=== PATIENT | female | born 1940 | race Caucasian/White ===

== ENCOUNTER → 2017-02-07 | Outpatient (CLI) | payer OTHER ==
[~2017-02-07] MED LIST: CALCIUM 500 +1 EAC5 PO; CELEXA20 MG PO; FISH OIL 1,001000 M2 PO; MELATONIN3 MG PO; VITAMIN B-1100 M1 PO; VITAMIN B-12500 MCG PO; VITAMIN D1000 UNI1 PO
== END ==
LOC: RAD 08:15
DX: Z12.31 Encounter for screening mammogram for malignant neoplasm of breast (principal)

== ENCOUNTER → 2017-03-30 | Outpatient (CLI) | payer OTHER ==
--- NOTE | ~2017-03-30 | 2DMMODE ---
[facility] [address] [place] [address] 2 D/M-MODE ECHOCARDIOGRAM Name: WESTON SANABRIA Room #: REG [facility] [id number] Admission: 03/30/17 Attend Phys: Siddhartha Andres Discharge: Date of : 40 Date of Service: 03/30/17 1835 Report #: [id number] THIS REPORT FOR: //name// APPROVED REPORT Study performed: 03/30/2017 11:46:07 EXAM: Comprehensive 2D, Doppler, and color-flow Echocardiogram Patient Location: Out-Patient Room #: Echo lab Status: routine BSA: 1.57 HR: 74 bpm BP: 138/67 mmHg Other Information Study Quality: Adequate Indications High calcium score 2D Dimensions RVDd: 29.28 mm LVEF(%): 73.16 (>50%) IVSd: 9.63 (7-11mm) LVOT Diam: 16.69 (18-24mm) LVDd: 39.44 mm PWd: 8.14 (7-11mm) Ascending Ao: 22.17 (22-36mm) LVDs: 23.02 (25-40mm) Aortic Root: 21.93 mm IVC: 13.00 mm Castillo's LVEF: 73.16 % Volumes Left Atrial Volume (Systole) Single Plane 4CH: 19.53 mL Single Plane 2CH: 21.44 mL LA ESV Index: 14.00 mL/m2 Aortic Valve AoV Peak Seth.: 1.21 m/s AO Peak Gr.: 5.82 mmHg LVOT Max P.47 mmHg LVOT Max V: 0.93 m/s EDY Vmax: 1.69 cm2 Mitral Valve E/A Ratio: 1.3 MV Decel. Time: 231.53 ms MV E Max Seth.: 0.77 m/s [facility] [email or web address] [place] [address] 2 D/M-MODE ECHOCARDIOGRAM Name: WESTON SANABRIA Room #: [facility] Dirk#: [id number] Admission: 03/30/17 Attend Phys: Siddhartha Andres Discharge: Date of : 40 Date of Service: 03/30/17 1835 Report #: [id number] MV A Seth.: 0.59 m/s MV PHT: 67.14 ms IVRT: 96.89 ms Pulmonary Valve PV Peak Seht.: 1.05 m/s PV Peak Gr.: 4.37 mmHg Pulmonary Vein P Vein S: 0.70 m/s P Vein A: 0.35 m/s P Vein D: 0.56 m/s P Vein A Dur.: 115.3 msec P Vein S/D Ratio: 1.25 Tricuspid Valve TR Peak Seth.: 3.02 m/s TR Peak Gr.: 36.37 mmHg PA Pressure: 41.00 mmHg Left Ventricle The left ventricle is normal size. There is normal left ventricular wall thickness. The left ventricular systolic function is normal. The left ventricular ejection fraction is within the normal range. LVEF is 60-65%. The left ventricular diastolic function is normal. Right Ventricle The right ventricle is normal size. The right ventricular systolic function is normal. Atria The left atrium size is normal. The right atrium size is normal. Aortic Valve The aortic valve is normal in structure. Aortic valve is calcified. No aortic regurgitation is present. There is no aortic valvular stenosis. Mitral Valve The mitral valve is normal in structure. Trace mitral regurgitation. No evidence of mitral valve stenosis. Tricuspid Valve The tricuspid valve is normal in structure. There is moderate tricuspid regurgitation. There is mild pulmonary hypertension. Pulmonic Valve [address] [address] 2 D/M-MODE ECHOCARDIOGRAM Name: TRISTAJORYWESTON Castillo Room #: REG Dirk#: [id number] Admission: 03/30/17 Attend Phys: Siddhartha Andres Discharge: Date of : 40 Date of Service: 03/30/17 1835 Report #: [id number] The pulmonary valve is normal in structure. There is no pulmonic valvular regurgitation. Great Vessels The aortic root is normal in size. IVC is normal in size and collapses >50% with inspiration. Pericardium There is no pericardial effusion. <Conclusion> The left ventricle is normal size. LVEF is 60-65%. The left ventricular diastolic function is normal. The right ventricle is normal size. The left atrium size is normal. The aortic valve is normal in structure. Aortic valve is calcified. There is no aortic valvular stenosis. Trace mitral regurgitation. There is moderate tricuspid regurgitation. There is mild pulmonary hypertension. There is no pericardial effusion. <ELECTRONICALLY SIGNED> By: Estuardo Hdez MD, FACC 03/30/171834 34 34 Estuardo Hdez MD, FACC /INF
== END ==
LOC: CV 08:02
DX: I27.2 Other secondary pulmonary hypertension (principal); I25.10 Atherosclerotic heart disease of native coronary artery without angina pectoris; I07.1 Rheumatic tricuspid insufficiency; E83.52 Hypercalcemia

== ENCOUNTER → 2017-05-19 | Outpatient (CLI) | payer OTHER ==
[~2017-05-19] MED LIST changes: +ASPIRIN81 M2 PO; +ATORVASTATIN CA40 MG PO; +COLACE100 MG PO; +HYDROCODON-ACE1 EAC7 PO; +SINEMET 25-1001 EAC1 PO; +XARELTO10 MG PO
== END ==
LOC: SEN 13:52
DX: E78.5 Hyperlipidemia, unspecified (principal); F32.9 Major depressive disorder, single episode, unspecified; R42 Dizziness and giddiness; F17.200 Nicotine dependence, unspecified, uncomplicated; Z90.710 Acquired absence of both cervix and uterus; Z98.890 Other specified postprocedural states

== ENCOUNTER → 2018-02-08 | Outpatient (CLI) | payer OTHER ==
[~2018-02-08] MED LIST changes: -ASPIRIN81 M2 PO; -ATORVASTATIN CA40 MG PO; -COLACE100 MG PO; -HYDROCODON-ACE1 EAC7 PO; -SINEMET 25-1001 EAC1 PO; -XARELTO10 MG PO
== END ==
LOC: RAD 01:04
DX: Z12.31 Encounter for screening mammogram for malignant neoplasm of breast (principal)

== ENCOUNTER → 2018-04-20 | Outpatient (CLI) | payer OTHER ==
[~2018-04-20] MED LIST changes: +ASPIRIN81 M2 PO; +ATORVASTATIN CA40 MG PO; +COLACE100 MG PO; +HYDROCODON-ACE1 EAC7 PO; +SINEMET 25-1001 EAC1 PO; +XARELTO10 MG PO
[2018-04-20 15:33] VITALS: BP 121/61
== END ==
LOC: SEN 09:16
DX: S72.042D Displaced fracture of base of neck of left femur, subsequent encounter for closed fracture with routine healing (principal); M81.0 Age-related osteoporosis without current pathological fracture; X58.XXXD Exposure to other specified factors, subsequent encounter

== ENCOUNTER → 2018-06-29 | Outpatient (CLI) | payer OTHER | LOC: SEN 06-22 15:37 | DX: Z09 Encounter for follow-up examination after completed treatment for conditions other than malignant neoplasm (principal); E78.5 Hyperlipidemia, unspecified; G47.00 Insomnia, unspecified; G20 Parkinson's disease; R63.4 Abnormal weight loss; F32.9 Major depressive disorder, single episode, unspecified ==

== ENCOUNTER → 2018-08-16 | Outpatient (CLI) | payer OTHER | LOC: NUC 09:06 | DX: S72.042A Displaced fracture of base of neck of left femur, initial encounter for closed fracture (principal); X58.XXXA Exposure to other specified factors, initial encounter; Y93.89 Activity, other specified; Y92.89 Other specified places as the place of occurrence of the external cause; Y99.8 Other external cause status; Z96.642 Presence of left artificial hip joint ==

== ENCOUNTER → 2018-09-28 | Outpatient (CLI) | payer OTHER ==
[2018-09-28 13:48] LABS: ABSOLUTE NEUTROPHILS 3.5 thou/uL (1.4-8.2); BASOPHILS 0.6 % (0.0-2.0); EOSINOPHILS 2.6 % (0.0-3.0); HEMOGLOBIN 10.5 gm/dL (12.0-15.0); LYMPHOCYTES 25.2 % (24.0-44.0); MCH 29.4 pg (26.0-34.0); MCV 86.6 fL (80.0-100.0); MONOCYTES 9.1 % (1.0-8.0); PLATELET COUNT 282 thou/uL (150-400); POLYS 62.5 % (36.0-66.0); RBC 3.58 mil/uL (4.20-5.00); RDW 17.7 % (10.5-14.5); WBC 5.6 thou/uL (4.0-11.0)
== END ==
LOC: SEN 07:47
PROVIDERS: Nurse Practitioner Family
DX: E78.5 Hyperlipidemia, unspecified (principal); D64.9 Anemia, unspecified; G20 Parkinson's disease

== ENCOUNTER → 2018-12-05 | Outpatient (CLI) | payer OTHER | LOC: RAD 15:01 | DX: M47.816 Spondylosis without myelopathy or radiculopathy, lumbar region (principal); M43.8X4 Other specified deforming dorsopathies, thoracic region ==

== ENCOUNTER → 2018-12-14 | Outpatient (CLI) | payer OTHER | LOC: MRI 10:31 | DX: M43.8X5 Other specified deforming dorsopathies, thoracolumbar region (principal); M47.812 Spondylosis without myelopathy or radiculopathy, cervical region; M51.26 Other intervertebral disc displacement, lumbar region; M12.88 Other specific arthropathies, not elsewhere classified, other specified site; M85.68 Other cyst of bone, other site ==

== ENCOUNTER → 2018-12-26 | Outpatient (CLI) | payer OTHER ==
[~2018-12-26] VITALS: Ht 157.5 cm; Wt 47.6 kg
[2018-12-26 08:33] VITALS: BP 152/61
[2018-12-26 10:55] VITALS: BP 146/68
[2018-12-26 12:00] VITALS: BP 124/82
== END | disposition home or self-care (01) ==
LOC: SPEC 07:19
DX: M80.08XA Age-related osteoporosis with current pathological fracture, vertebra(e), initial encounter for fracture (principal); M54.9 Dorsalgia, unspecified; N18.9 Chronic kidney disease, unspecified; G20 Parkinson's disease; K21.9 Gastro-esophageal reflux disease without esophagitis; F32.9 Major depressive disorder, single episode, unspecified; Z90.710 Acquired absence of both cervix and uterus; Z98.890 Other specified postprocedural states; Z85.3 Personal history of malignant neoplasm of breast; Z79.899 Other long term (current) drug therapy; Z88.2 Allergy status to sulfonamides; Z79.82 Long term (current) use of aspirin

== ENCOUNTER 2019-03-21 15:57 | Inpatient (IN) | payer OTHER ==
[~2019-03-21] VITALS: Ht 160 cm; Wt 44.8 kg
--- NOTE | ~2019-03-21 | O ---
[facility] [place] [address] OPERATIVE REPORT Name: DANIELEWESTON Cecilia Room #: 434-P [facility] IN .R.#: [id number] Admission: 03/21/19 Attend Phys: Michael Fan MD Discharge: Date of : 40 Report #: [id number] THIS REPORT FOR: //name// CC: Michael Stephens DATE OF SERVICE: 03/22/2019 PREOPERATIVE DIAGNOSES: 1. Organoaxial gastric volvulus. 2. Type 4 paraesophageal hernia, symptomatic. POSTOPERATIVE DIAGNOSES: 1. Organoaxial gastric volvulus. 2. Type 4 paraesophageal hernia, symptomatic. OPERATIVE PROCEDURE DONE: Laparoscopic repair of paraesophageal hernia with reduction of gastric volvulus and laparoscopic Toupet fundoplication. OPERATING SURGEON: Ned Palmer MD INDICATIONS FOR PROCEDURE: The patient is a 78-year-old female who presented with features of nausea and vomiting and upper abdominal discomfort. CT scan that was done showed features of a distended stomach with features of organoaxial gastric volvulus. The patient was advised laparoscopic repair of the same with fundoplication. The patient showed understanding and agreed to proceed. DESCRIPTION OF PROCEDURE: After explaining to the patient in detail and informed consent was obtained, the patient was identified in the preoperative holding area. The patient was transferred to the operating room and was placed in supine position. Sequential compressive devices were placed for DVT prophylaxis. Preoperative antibiotics were given. After induction of anesthesia, the abdomen was prepped and draped in a sterile fashion. Through a left upper quadrant 1 cm incision and using Optiview technique, peritoneal cavity was entered and pneumoperitoneum was created. Thereafter, under direct vision, another 5 mm trocar was placed in the left mid abdomen, another 12 mm trocar was placed in the right mid abdomen, another 5 mm trocar was placed in the right subcostal region and through a 1 cm incision in the epigastrium, a Chuck retractor was introduced and the left lobe of the liver was retracted. Upon initial inspection, the patient was noted to have a large paraesophageal hernia with most of the stomach and part of the duodenum within this hernia and also part of the mesentery within the hernia stump. Using pars flaccida technique, the right jocelyne was identified. The sac was then gently dissected off the right jocelyne using hook electrocautery and then blunt dissection, I continued [address] [address] OPERATIVE REPORT Name: DANIELEWESTON Room #: 434-P [facility] IN ..#: [id number] Admission: 03/21/19 Attend Phys: Michael Fan MD Discharge: Date of : 40 Report #: [id number] dissection anteriorly using hook electrocautery and using the EnSeal. I continued dissection onto the left jocelyne. The sac was then retracted inferiorly and I continued dissection and mobilization of the sac superiorly using sharp and blunt dissection. The posterior part of the hernia was not well visualized; therefore, I took down the short gastrics using EnSeal. The gastrophrenic ligament was divided. I then continued dissection of the sac posteriorly and then once this was achieved, I was able to have a little more exposure to obtain further lengthen the esophagus by continued mobilization in the superior aspect of the sac and near the GE junction and lower esophagus. Once adequate mobilization was achieved, I then excised the redundant sac. Posterior cruroplasty was performed using 2 xfphaj-dc-wiaiw Ethibond suture. I then placed another llbhto-wv-xhxbu Ethibond suture anteriorly. I then brought the fundus of the stomach through a retrogastric window and was brought to the right side. I then created a 270-degree wrap using 3 interrupted 2-0 Ethibond sutures on the stomach and the esophagus. Three sutures were placed on either side. I then pexied the wrap on both sides onto the crura. Prior to this, I then placed a Bio-A mesh to reinforce the crura posteriorly. Two interrupted sutures were placed on either side to anchor the mesh. Once this was achieved, absolute hemostasis was ensured. Thorough saline irrigation was given. Approximately about 10 mL of lidocaine and Marcaine mix was instilled under the left hemidiaphragm. Incisions were then closed with 4-0 Monocryl. Dermabond was applied. The 12 mm port site incision was closed with 0 Vicryl for the fascia. Skin was closed with 4-0 Monocryl for the incisions. The patient was awoken from anesthesia and was transferred to the recovery room in stable condition. ESTIMATED BLOOD LOSS: Approximately 50 mL. CONDITION OF THE PATIENT: Stable. FLUIDS GIVEN: Per anesthesia notes. SPECIMEN SENT: Excised sac. COMPLICATIONS: None. ANESTHESIA: General anesthesia. By: 1422 1450 Ned Palmer MD /nt
[2019-03-21 16:00] VITALS: BP 152/82
[2019-03-21 18:22] LABS: BASOPHILS 0.1 % (0.0-2.0); HEMATOCRIT 40.7 % (37.0-47.0); HEMOGLOBIN 13.4 gm/dL (12.0-15.0); LYMPHOCYTES 8.5 % (24.0-44.0); MCH 30.6 pg (26.0-34.0); MCHC 32.9 g/dL (28.0-37.0); MCV 93.2 fL (80.0-100.0); MONOCYTES 4.8 % (1.0-8.0); PLATELET COUNT 161 thou/uL (150-400); POLYS 86.6 % (36.0-66.0); RBC 4.37 mil/uL (4.20-5.00); RDW 16.1 % (10.5-14.5); WBC 10.4 thou/uL (4.0-11.0)
[2019-03-21 18:24] LABS: CALCIUM 10.1 mg/dL (8.5-10.1); CREATININE 1.1 mg/dL (0.6-1.0); POTASSIUM 3.4 mmol/L (3.5-5.1)
[2019-03-21 18:35] LABS: ALBUMIN 4.3 g/dL (3.4-5.0); TOTAL BILIRUBIN 0.9 mg/dL (<0.1-1.0); TOTAL PROTEIN 8.6 g/dL (6.4-8.2); TROPONIN-I 0.24 ng/mL (<0.06)
[2019-03-21 20:03] LABS: APTT 23.2 Seconds (24.5-32.8); PROTIME 10.9 Seconds (9.3-11.4)
[2019-03-21 21:15] LABS: URINE BILIRUBIN NEGATIVE (Negative); URINE BLOOD 2+ (Negative); URINE CLARITY CLEAR; URINE COLOR YELLOW; URINE GLUCOSE-RANDOM* NEGATIVE (Negative); URINE KETONES 3+ (Negative); URINE LEUKOCYTES NEGATIVE (Negative); URINE NITRITE NEGATIVE (Negative); URINE PROTEIN (DIPSTICK) 2+ (Negative); URINE SPECIFIC GRAVITY 1.025 (1.005-1.035); URINE UROBILINOGEN 0.2 E.U./dl (0.2-1.0)
[2019-03-21 21:22] LABS: BACTERIA None Seen /HPF (None Seen); CASTS None Seen /LPF (None Seen); CRYSTALS None Seen /LPF (None Seen); SQUAMOUS None Seen /LPF (0-3); URINE RBC 3-10 Few /HPF (0-2); URINE WBC 0-5 Rare /HPF (0-5)
[2019-03-22] VITALS (13 sets, daily range): BP systolic 122–145; BP diastolic 48–70
--- NOTE | 2019-03-22 02:03 | NUR ---
RECEIVED REPORT FROM ER NURSE. PT SETTLED INTO NEW ROOM. A&OX4. DENIES ANY PAIN. PT STATED SHE IS NOT CURRENTLY HAVING ANY NAUSEA. NGT TO LIS. RN SPOKE WITH DR OSORIO REGARDING ORDERS. PT RESTING QUIETLY IN BED AT THIS TIME. WAITING FOR KUB RESULTS. WILL CONTINUE TO MONITOR CLOSELY.
--- NOTE | 2019-03-22 03:07 | NUR ---
NO NEW COMPLAINTS. PT SLEEPING AT THIS TIME. DR OSORIO WAS UPDATED ON KUB AND LACTATE RESULTS. NO FURTHER ORDERS RECEIVED. NGT INTACT. NO FURTHER C/O N/V. FALL PRECAUTIONS IN PLACE. WILL CONTINUE TO MONITOR FURTHER.
[2019-03-22 05:42] LABS: HEMATOCRIT 33.2 % (37.0-47.0); MCH 29.5 pg (26.0-34.0); MCHC 32.1 g/dL (28.0-37.0); MCV 91.9 fL (80.0-100.0); RBC 3.61 mil/uL (4.20-5.00); RDW 16.3 % (10.5-14.5); WBC 12.7 thou/uL (4.0-11.0)
[2019-03-22 05:52] LABS: HEMOGLOBIN 10.6 gm/dL (12.0-15.0)
[2019-03-22 06:35] LABS: CALCIUM 8.3 mg/dL (8.5-10.1); CREATININE 0.8 mg/dL (0.6-1.0)
--- NOTE | 2019-03-22 08:57 | EKG ---
[address] [place] [address] ELECTROCARDIOGRAM REPORT Name: WESTON SANABRIA Room #: 350-P 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 : 1940 Requested By: Helga Mosley Order Number: [id number] MD: Jorge Alejandro Measurements Intervals [place] Rate: 61 P: -68 [place]: 180 QRS: 45 QRSD: 86 T: 78 QT: 432 QTc: 435 Interpretive Statements Probable electrical interference artifact Sinus rhythm Unable to assess ST and T-wave segments Compared to ECG 03/06/2018 12:55:08 Electrical interference artifact is present, recommend repeat tracing Electronically Signed On 03-22-2019 8:57:34 CDT by Jorge Alejandro [email or web address] <ELECTRONICALLY SIGNED> By: Jorge Alejandro MD, [facility] 03/22/19 0857 181 11 Jorge Alejandro MD, [facility] /EPI
--- NOTE | 2019-03-22 17:07 | EKG ---
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 : 1940 Requested By: Padmini Cesar Order Number: [id number] MD: Jorge Alejandro Measurements Intervals [place] Rate: 80 P: 70 [place]: 145 QRS: 23 QRSD: 88 T: 4 QT: 391 QTc: 451 Interpretive Statements Sinus rhythm Nonspecific ST and T wave abnormality Compared to ECG 03/21/2019 18:12:07 Electrical interference artifact no longer present Electronically Signed On 03-22-2019 17:07:20 CDT by Jorge Alejandro [email or web address] <ELECTRONICALLY SIGNED> By: Jorge Alejandro MD, [facility] 03/22/19 1707 1221 1221 Jorge Alejandro MD, [facility] /EPI
--- NOTE | 2019-03-22 17:14 | NUR ---
WENT FOR SURGERY MOST OF THE DAY. RETURNING TO UNIT AT THIS TIME. SLEEPING. AT BEDSIDE. WILL CONT WITH PLAN OF CARE.
[2019-03-23 00:38] LABS: HEMATOCRIT 32.1 % (37.0-47.0); HEMOGLOBIN 10.3 gm/dL (12.0-15.0); MCH 29.9 pg (26.0-34.0); MCHC 32.2 g/dL (28.0-37.0); MCV 92.9 fL (80.0-100.0); RBC 3.46 mil/uL (4.20-5.00); RDW 16.2 % (10.5-14.5); WBC 12.7 thou/uL (4.0-11.0)
[2019-03-23 00:55] LABS: CALCIUM 7.9 mg/dL (8.5-10.1); CREATININE 0.8 mg/dL (0.6-1.0); POTASSIUM 3.9 mmol/L (3.5-5.1); TROPONIN-I 0.21 ng/mL (<0.06)
[2019-03-23 03:37] VITALS: BP 150/82
[2019-03-23 05:25] LABS: HEMATOCRIT 31.9 % (37.0-47.0); HEMOGLOBIN 10.1 gm/dL (12.0-15.0); MCH 29.9 pg (26.0-34.0); MCHC 31.8 g/dL (28.0-37.0); RBC 3.39 mil/uL (4.20-5.00); RDW 16.9 % (10.5-14.5); WBC 11.8 thou/uL (4.0-11.0)
[2019-03-23 05:52] LABS: CALCIUM 7.7 mg/dL (8.5-10.1); CREATININE 0.6 mg/dL (0.6-1.0); PHOSPHORUS 2.8 mg/dL (2.5-4.9); POTASSIUM 3.7 mmol/L (3.5-5.1)
--- NOTE | 2019-03-23 06:27 | NUR ---
ASSUMED CARE AT 1900. PT DENIES PAIN OVERNIGHT, EXCEPT OCCASIONAL DISCOMFORT WITH MOVEMENT. DENIES SOB, GRADUALLY TITRATING O2 DOWN FROM 4L TO 2L THEN 0.5L THIS AM, SATS STAYING IN HIGH 90'S. DENIES NAUSEA, ASKING WHEN SHE CAN START DRINKING; MAINTAINING STRICT NPO, PROVIDING SWABS. FOUR LAPS SITES C/D/I WITH SLIGHT BRUISING. PT STARTED VOIDING USING BSC AROUND MIDNIGHT. HAS BEEN SR IN 80'S OVERNIGHT, BUT DID HAVE 3-4 BURSTS OF SVT LASTING LESS THAN 20 SECONDS WHILE ASLEEP. NO OTHER CONCERNS, WILL CONTINUE TO MONITOR.
[2019-03-23 07:27] VITALS: BP 147/80
--- NOTE | 2019-03-23 07:55 | NUR ---
DR LEWIS NOTIFIED OF PSVT. PT IS ASYMPTOMATIC, VSS. WILL MONITOR. HE WAS ALSO NOTIFIED OF SLIGHT ELEVATION IN NA+ LEVEL. IVF CHANGED. SEE ORDERS.
[2019-03-23 11:23] LABS: FOLIC ACID 12.8 ng/mL (8.6-58.9)
[2019-03-23 12:18] VITALS: BP 149/75
--- NOTE | 2019-03-23 12:21 | NUR ---
ASSESSMENT: CM REVIEWED CHART AND MET WITH PATIENT AT THE BEDSIDE. PT WAS ADMITTED WITH VOLVULUS OBSTRUCTION. PT HAD SURGERY YESTERDAY AND REPORTS FEELING WELL. PT REPORTS SHE LIVES IN A HOUSE WITH HER SPOUSE. PT REPORTS THREE STEPS TO ENTER WITH [facility]ANDR[facility]S. PT REPORTS SHE HAS A BASEMENT BUT HAS NO NEED TO GO DOWN THERE. PT REPORTS SHE NORMALLY AMBULATES WITH A CANE IF SHE GOES LONG DISTANCES AND REPORTS ALSO HAVING A WALKER BUT DOES NOT USE IT OFTEN. PT REPORTS HAVING GRAB BARS IN THE SHOWER AND A SHOWER CHAIR AND IS INDEPENDENT WITH ADLS. PT REPORTS SHE HAS BEEN TO [facility]N IN THE PAST AND HAD [facility] IN THE PAST. CM DISCUSSED ROLE. PT WILL BE HERE THROUGH THE WEEKEND AND CM WILL FOLLOW UP ON TUESDAY TO ASSESS NEEDS.
--- NOTE | 2019-03-23 12:30 | 2DMMODE ---
[facility] [address] [place] [address] 2 D/M-MODE ECHOCARDIOGRAM Name: WESTON SANABRIA Room #: 350-P [facility] IN ..#: [id number] Admission: 03/21/19 Attend Phys: Michael Fan MD Discharge: Date of : 40 Date of Service: 03/23/19 1230 Report #: [id number] THIS REPORT FOR: //name// APPROVED REPORT Study performed: 03/23/2019 11:04:47 EXAM: Comprehensive 2D, Doppler, and color-flow Echocardiogram Patient Location: Bedside Room #: 350 Status: routine BSA: 1.42 HR: 72 bpm BP: 147/80 mmHg Rhythm: NSR Other Information Study Quality: Good Indications CAD Palpitations Hypertension/HDD 2D Dimensions RVDd: 33.93 mm IVSd: 8.21 (7-11mm) LVOT Diam: 18.60 (18-24mm) LVDd: 39.35 mm PWd: 8.09 (7-11mm) Ascending Ao: 24.00 (22-36mm) LVDs: 24.00 (25-40mm) Aortic Root: 26.16 mm IVC: 18.00 mm Volumes Left Atrial Volume (Systole) Single Plane 4CH: 49.46 mL Single Plane 2CH: 51.74 mL LA ESV Index: 40.00 mL/m2 Aortic Valve AoV Peak Seth.: 1.11 m/s AO Peak Gr.: 4.92 mmHg LVOT Max P.89 mmHg LVOT Max V: 0.99 m/s EDY Vmax: 2.42 cm2 Mitral Valve [facility] [address] [place] [address] 2 D/M-MODE ECHOCARDIOGRAM Name: WESTON SANABRIA Cecilia Room #: 350-P [facility] IN [facility]#: [id number] Admission: 03/21/19 Attend Phys: Michael Fan MD Discharge: Date of : 40 Date of Service: 03/23/19 1230 Report #: [id number] E/A Ratio: 2.1 MV Decel. Time: 219.11 ms MV E Max Seth.: 1.14 m/s MV A Seth.: 0.55 m/s MV PHT: 63.54 ms IVRT: 92.27 ms Pulmonary Valve PV Peak Seth.: 0.93 m/s PV Peak Gr.: 3.50 mmHg Pulmonary Vein P Vein S: 0.82 m/s P Vein A: 0.43 m/s P Vein D: 0.61 m/s P Vein A Dur.: 87.7 msec P Vein S/D Ratio: 1.34 Tricuspid Valve TR Peak Seth.: 3.98 m/s TR Peak Gr.: 63.25 mmHg PA Pressure: 73.00 mmHg Left Ventricle The left ventricle is normal size. There is normal LV segmental wall motion. There is normal left ventricular wall thickness. The left ventricular systolic function is normal. The left ventricular ejection fraction is within the normal range. LVEF is 65-70%. Moderate diastolic dysfunction is present (pseudonormal filling). Right Ventricle The right ventricle is normal size. The right ventricular systolic function is normal. Atria Left atrium is dilated. Right atrium is dilated. Aortic Valve The aortic valve is normal in structure. No aortic regurgitation is present. There is no aortic valvular stenosis. Mitral Valve The mitral valve is normal in structure. Moderate to severe mitral regurgitation No evidence of mitral valve stenosis. Tricuspid Valve The tricuspid valve is normal in structure. There is moderate tricuspid regurgitation. Estimated PAP 70 mmHg There is severe [facility] [address] [place] [address] 2 D/M-MODE ECHOCARDIOGRAM Name: WESTON SANABRIA Cecilia Room #: 350-P [facility] IN [facility]#: [id number] Admission: 03/21/19 Attend Phys: Michael Fan MD Discharge: Date of : 40 Date of Service: 03/23/19 1230 Report #: [id number] pulmonary hypertension. Pulmonic Valve The pulmonary valve is normal in structure. There is no pulmonic valvular regurgitation. Great Vessels The aortic root is normal in size. IVC is normal in size and collapses <50% with inspiration. Pericardium There is no pericardial effusion. <Conclusion> The left ventricular systolic function is normal. There is normal LV segmental wall motion. LVEF is 65-70%. Moderate diastolic dysfunction Both atria are dilated. The aortic valve is normal in structure. No aortic regurgitation or stenosis The mitral valve is normal in structure. Moderate to severe mitral regurgitation There is moderate tricuspid regurgitation. Estimated pulmonary artery pressure of 70 mmHg There is no pericardial effusion. <ELECTRONICALLY SIGNED> By: Jorge Alejandro MD, [facility] 03/23/19 1230 1230 1230 Jorge Alejandro MD, FACC /INF
[2019-03-23 16:53] VITALS: BP 124/61
--- NOTE | 2019-03-23 17:30 | NUR ---
[facility] PT A&O X4. ASSESSMENT CHARTED. FALL PRECAUTIONS IN PLACE. VITAL SIGNS STABLE. PT STATES SHE HAS 4/10 PAIN IN HER ABDOMEN. RECEIVING SCHEDULED ANALGESICS. PT STATES THIS HELPS WITH PAIN. PT STATED SHE DOES NOT HAVE CHEST PAIN. PT STATED SHE DOES NOT HAVE SOB. PT STATES SHE IS NOT NAUSEATED. PT TITRATED OFF O2-PT DOES NOT WEAR O2 AT HOME. PT'S O2 SAT STABLE. PT AMBULATED THROUGHOUT ROOM. PT AMBULATED STEADY WITH STANDBY ASSIST. PT TOLERATING LIQUID DIET. PT HAD LIQUID BM X5. NOTIFIED DR. LEWIS. NEW MEDICATION ORDERED FOR LIQUID BM. WILL CONTINUE TO MONITOR BM. NO BLOOD IN BM. PT HAD AN ECHO. PT' S HEART RHYTHM SR THROUGHOUT THE SHIFT- SEE PREVIOUS NOTE FOR THIS MORNING'S HEART RHYTHM PSVT. PT'S SPOUSE AT BEDSIDE. PT'S SPOUSE EDUCATED ABOUT POC AND STATED UNDERSTANDING. PT COMFORTABLE IN BED WITHOUT FURTHER CONCERNS OR QUESTIONS.
[2019-03-23 19:28] VITALS: BP 128/67
[2019-03-24 03:57] VITALS: BP 118/68
--- NOTE | 2019-03-24 05:15 | NUR ---
ASSUMED CARE AT 1900. PT REPORTS ABD PAIN WITH MOVEMENT, RATING 5-6 OUT OF 10, BUT STATES IT GOES BACK DOWN ONCE SHE IS RESTING. PT HAS TAKEN THE SCHEDULED TYLENOL BUT DECLINED ANY STRONGER PAIN MEDS. DENIES NAUSEA OVERNIGHT, TOLERATING CLEAR LIQUIDS. DENIES SOB. ACTIVE BOWEL SOUNDS, HAS HAD TWO SMALL LIQUID STOOLS BUT AMOUNT OVERALL IS LESS THAN DURING THE DAY, LOPERAMIDE HAS HELPED. NO OTHER CONCERNS, WILL CONTINUE TO MONITOR.
[2019-03-24 05:26] LABS: HEMATOCRIT 28.9 % (37.0-47.0); HEMOGLOBIN 9.5 gm/dL (12.0-15.0); MCH 30.6 pg (26.0-34.0); MCHC 32.8 g/dL (28.0-37.0); MCV 93.4 fL (80.0-100.0); RBC 3.1 mil/uL (4.20-5.00); RDW 16.1 % (10.5-14.5); WBC 8.8 thou/uL (4.0-11.0)
[2019-03-24 05:54] LABS: CALCIUM 8.1 mg/dL (8.5-10.1); CREATININE 0.8 mg/dL (0.6-1.0); POTASSIUM 3.2 mmol/L (3.5-5.1)
[2019-03-24 07:28] VITALS: BP 130/65
[2019-03-24 11:08] VITALS: BP 114/86
[2019-03-24 15:04] VITALS: BP 130/73
--- NOTE | 2019-03-24 17:20 | NUR ---
ASSUMED CARE OF PATIENT AT 0700. PATIENT IS POST SURGERY AND DID NOT HAVE ANY NAUSEA OR VOMITTING TODAY. PATIENT WAS ADVANCED TO FULL LIQUID DIET TODAY AND HAS TOLERATED IT WELL. PATIENT IS ON HER WAY TO DISCHARGE SOON.
[2019-03-24 19:15] VITALS: BP 117/68
[2019-03-25 04:00] VITALS: BP 111/63
--- NOTE | 2019-03-25 05:03 | NUR ---
Patient making good progress towards outcome goals. Lap sites x 5 clean dry and intact with dermabond. No nausea or vomiting. Good pain control with Tylenol. Radha; signs and rhythm stable. Loose stools, incontinent at times. High fall risks, uses call light appropriately for needs. Fall precautions in place.
[2019-03-25 07:57] VITALS: BP 133/71
[2019-03-25 11:15] VITALS: BP 118/66
[2019-03-25 15:15] VITALS: BP 127/72
--- NOTE | 2019-03-25 16:31 | NUR ---
CONT TO PROGRESS TOWARDS DISCHARGE GOALS. DOES NOT SEEM TO BE IN PAIN. AMBULATES TO BATHROOM WITH ONE ASSIST. DOES NOT SEEM TO BE IN PAIN AT THIS TIME. RESPIRATIONS ARE NON LABORED. TOLERATING FULL LIQUID DIET. REFUSE MIRALAX THIS AM STATING SHE HAS BEEN HAVING DIARRHEA THIS LAST FEW DAYS. WILL CONT WITH PLAN OF CARE.
[2019-03-25 19:06] VITALS: BP 139/70
[2019-03-26 03:33] VITALS: BP 123/64
--- NOTE | 2019-03-26 04:10 | NUR ---
Patient progressing well towards outcome goals. Tolerating full liquids. Having bowel movements. Vital signs and rhythm stable. High fall risks, fall precautions in place, uses call light appropriately for needs, up with standby assist. Dermabonded lap sites clean dry and intact.
[2019-03-26 07:29] VITALS: BP 119/65
[2019-03-26] MEDS ORDERED: METOPROLOL SUCC50 MG PO (10:31)
[2019-03-26 10:39] VITALS: BP 119/52
[2019-03-26] MEDS ORDERED: OXYCODONE20 MG/1 ML PO (10:45)
[2019-03-26 11:55] VITALS: BP 119/52
--- NOTE | 2019-03-26 12:02 | NUR ---
PATIENT WILL BE DISCHARGED HOME TODAY. SHE IS ALERT ORIENTED X4. DOES NOT SEEM TO BE IN PAIN AT THIS TIME. RESPIRATIONS ARE EVEN NON LABORED. SHE AMBULATES ABOUT THE ROOM WITH MINIMAL ASSIST. SHE STATES SHE IS READY TO GO HOME TODAY. WILL CONT WITH PLAN OF CARE.
--- NOTE | 2019-03-26 12:08 | NUR ---
on-going assessment: CM REVIEWED CHART AND PT HAS ORDERS TO DISCHARGE HOME WITH HH. CM MET WITH PATIENT AND SHE STATES SHE HAD [facility] IN THE PAST AND PREFERS TO USE THEM AGAIN. CHOICE OF VENDOR FORM COMPLETED. CM SENT REFERRAL TO [facility] WHO STATES THEY CAN ACCEPT PT. CM FAXED D/C PAPERWORK TO [facility]. PT REPORTS NO FURTHER NEEDS FROM CM.
--- NOTE | 2019-03-26 16:06 | PATH ---
[facility] [address] [place] [address] PATHOLOGY RPT PROCEDURE Name: DANIELEHEATHER L Room #: 434-P [facility] IN M.R.#: [id number] Admission: 03/21/19 Date of : 40 Discharge: 03/26/19 Report #: [id number] Path Case #: [id number] [facility] Accession Number: [id number] . 01 Material submitted: . hernia - HIATAL HERNIA SAC . 01 Clinical history: . Hiatal hernia, volvulus . 02 Diagnosis: Fibroadipose tissue, hiatal hernia sac, repair: - Fragments lined by reactive mesothelium, consistent with hernia sac. - Minute incidental reactive lymph node. - Fragments of neural tissue as well as fibrovascular connective tissue associated with marked congestion. (IUV:garrett; 03/26/2019) MBR 03/26/2019 1240 Local . 02 Electronically signed: . Ara Slater MD, Pathologist NPI- [id number] . 01 Gross description: . The specimen is received in formalin, labeled "Heather Cano, hiatal hernia sac". Received is a segment of fibromembranous tissue with attached lobulated tissue measuring 10.2 x 2.8 x 1.0 cm in greatest dimensions. No distinct nodules or lesions are noted grossly. The specimen is submitted representatively in cassette A1. (CAA; 03/23/2019) QA/QA 03/23/2019 1127 Local . 02 Pathologist provided ICD-10: K44.9 . 02 CPT . 974388 Specimen Comment: A courtesy copy of this report has been sent to Specimen Comment: [phone], , , . Specimen Comment: Report sent to ,DR LEWIS,DR FERNANDES / DR MILLER Performed at: [address] [id number] MD Bon Encinas MD Phone: [phone] Performed at: [address] [id number] [address] [address] PATHOLOGY RPT PROCEDURE Name: HEATHER CANO Room #: 434-P [facility] IN M.R.#: [id number] Admission: 03/21/19 Date of : 40 Discharge: 03/26/19 Report #: [id number] Path Case #: [id number] MD Ara Slater [place] Phone: [phone]
== END 2019-03-26 16:04 | disposition home health service (06) | DRG 326 ==
LOC: ER 15:57 → EROBS 22:26 → 4S 22:26 → 3W 22:26 → 4S 03-23 13:49 → ENTRNSPT 03-26 15:34 → EDTRNSPTSTS 03-26 15:38 → 4S 03-26 16:04 → CMPTRNSPT 03-27 08:53
PROVIDERS: Nurse Practitioner Family; Physician Assistant; Surgery; ADMIT Hospitalist
DX: K31.89 Other diseases of stomach and duodenum (principal); N17.0 Acute kidney failure with tubular necrosis; E46 Unspecified protein-calorie malnutrition; Z68.1 Body mass index [BMI] 19.9 or less, adult; I47.1 Supraventricular tachycardia; D62 Acute posthemorrhagic anemia; K44.9 Diaphragmatic hernia without obstruction or gangrene; G20 Parkinson's disease; M81.0 Age-related osteoporosis without current pathological fracture; F32.9 Major depressive disorder, single episode, unspecified; G47.00 Insomnia, unspecified; I25.10 Atherosclerotic heart disease of native coronary artery without angina pectoris; E86.0 Dehydration; R79.89 Other specified abnormal findings of blood chemistry; Z87.81 Personal history of (healed) traumatic fracture; Z87.891 Personal history of nicotine dependence; Z85.3 Personal history of malignant neoplasm of breast; Z90.710 Acquired absence of both cervix and uterus; Z90.13 Acquired absence of bilateral breasts and nipples; Z79.82 Long term (current) use of aspirin; Z79.899 Other long term (current) drug therapy; Z88.2 Allergy status to sulfonamides; Z82.0 Family history of epilepsy and other diseases of the nervous system
CPT/HCPCS: 10100; 10879; 50010; 50101; 50249; 50386; 50455; 50555; 50558; 53307; 53310; 53335; 54022; 54118; 56462; 56525; 56526; 56531; 57092; 57269; 62110; 62900; 70005

== ENCOUNTER → 2019-06-19 | Outpatient (CLI) | payer OTHER ==
[~2019-06-19] MED LIST changes: +METOPROLOL SUCC50 MG PO; +OXYCODONE20 MG/1 ML PO
== END ==
LOC: RAD 09:12 → BC 17:30
DX: Z12.31 Encounter for screening mammogram for malignant neoplasm of breast (principal)

== ENCOUNTER → 2019-09-17 | Outpatient (CLI) | payer OTHER ==
[~2019-09-17] VITALS: Ht 160 cm; Wt 46.3 kg
[~2019-09-17] MED LIST changes: +LOPERAMIDE 2 MG2 M1 PO; +MELATONIN5 MG PO; +TOPROL XL50 MG PO; -VITAMIN D1000 UNI1 PO; +VITAMIN D325 MC3 PO
--- NOTE | 2019-09-18 18:07 | PATH ---
[facility] [address] [place] [address] PATHOLOGY RPT PROCEDURE Name: HEATHER CANO Cecilia Room #: [facility] Yehuda.#: [id number] Admission: 09/17/19 Date of : 40 Discharge: Report #: [id number] Path Case #: [id number] [facility] Accession Number: [id number] . 01 Material submitted: . colon - RANDOM BIOPSIES . 01 Clinical history: . Diarrhea rule out microscopic colitis . 02 Diagnosis: Large intestine, random colon, endoscopic biopsy: - Mild focal active cryptitis, (see comment). - Negative for dysplasia or malignancy. . (IUV:mml; 09/18/2019) QL 09/18/2019 1424 Local . 02 Comment: Sections of the colonic mucosa designated "random colon" show focal cryptitis, and a moderately cellular lamina propria composed predominantly of lymphocytes and plasma cells and occasional eosinophils. Surface ulceration is not identified. There are no crypt abscesses, granulomas or viral inclusions. The process affects all the fragments with a similar intensity. Given the description, the differential diagnosis includes focal self-limited episode of colitis, infectious-type of colitis, resolving episode of colitis, medication/drug-induced colitis as well as chronic diverticulitis. Please correlate with clinical as well as endoscopic findings. . (IUV:mml; 09/18/2019) . 02 Electronically signed: . Ara Slater MD, Pathologist NPI- [id number] . 01 Gross description: . The specimen is received in formalin, labeled "Heather Canorosalio" and consists of multiple fragments of pink-saha tissue measuring 1.3 x 0.7 x 0.3 cm in aggregate which are entirely submitted in A1. (SDY; 09/17/2019) SYU/SYU 09/17/2019 1856 Local . 02 Pathologist provided ICD-10: K62.89 . 02 CPT . [address] [address] PATHOLOGY RPT PROCEDURE Name: HEATHER CANO Cecilia Room #: REG [facility]#: [id number] Admission: 09/17/19 Date of : 40 Discharge: Report #: [id number] Path Case #: [id number] Specimen Comment: A courtesy copy of this report has been sent to [phone] Specimen Comment: [id number] Specimen Comment: Report sent to / DR MONTES Performed at: [address] [facility], [place], [place] [id number] MD Bon Encinas MD Phone: [phone] Performed at: [address] [id number] MD Ara Slater MD Phone: [phone]
== END | disposition home or self-care (01) ==
LOC: GI 09:22
DX: R19.4 Change in bowel habit (principal); R19.7 Diarrhea, unspecified; K62.89 Other specified diseases of anus and rectum; K57.30 Diverticulosis of large intestine without perforation or abscess without bleeding; N18.9 Chronic kidney disease, unspecified; M81.0 Age-related osteoporosis without current pathological fracture; G20 Parkinson's disease; F32.9 Major depressive disorder, single episode, unspecified; F41.9 Anxiety disorder, unspecified; Z98.890 Other specified postprocedural states; Z79.899 Other long term (current) drug therapy; Z85.3 Personal history of malignant neoplasm of breast; Z90.710 Acquired absence of both cervix and uterus; Z88.2 Allergy status to sulfonamides; Z79.82 Long term (current) use of aspirin
CPT/HCPCS: 62110; 62900

== ENCOUNTER → 2019-12-19 | Outpatient (CLI) | payer OTHER | LOC: SJCVC 13:25 | PROVIDERS: ATTEND Internal Medicine | DX: R01.1 Cardiac murmur, unspecified (principal); I25.10 Atherosclerotic heart disease of native coronary artery without angina pectoris; I10 Essential (primary) hypertension; E78.5 Hyperlipidemia, unspecified; M81.0 Age-related osteoporosis without current pathological fracture; M85.80 Other specified disorders of bone density and structure, unspecified site; Z79.82 Long term (current) use of aspirin; Z79.899 Other long term (current) drug therapy; Z82.49 Family history of ischemic heart disease and other diseases of the circulatory system ==

== ENCOUNTER → 2019-12-25 | Outpatient (CLI) | payer OTHER | LOC: SJCVCIMAG 14:35 | PROVIDERS: ATTEND Internal Medicine | DX: I08.1 Rheumatic disorders of both mitral and tricuspid valves (principal); I10 Essential (primary) hypertension; E78.5 Hyperlipidemia, unspecified ==

== ENCOUNTER → 2020-06-23 | Outpatient (CLI) | payer OTHER | LOC: BC 11:03 | PROVIDERS: ATTEND Nurse Practitioner | DX: Z12.31 Encounter for screening mammogram for malignant neoplasm of breast (principal) ==

== ENCOUNTER → 2021-02-16 | Outpatient (CLI) | payer OTHER | LOC: SJCVCIMAG 07:45 | PROVIDERS: ATTEND Internal Medicine | DX: I08.8 Other rheumatic multiple valve diseases (principal); E78.5 Hyperlipidemia, unspecified; I25.10 Atherosclerotic heart disease of native coronary artery without angina pectoris; R06.00 Dyspnea, unspecified; Z79.899 Other long term (current) drug therapy ==

== ENCOUNTER → 2021-06-22 | Outpatient (CLI) | payer OTHER | LOC: SJCVCIMAG 11:46 | PROVIDERS: ATTEND Internal Medicine | DX: I08.1 Rheumatic disorders of both mitral and tricuspid valves (principal); R06.00 Dyspnea, unspecified ==

== ENCOUNTER → 2021-06-24 | Outpatient (CLI) | payer OTHER | LOC: BC 13:28 | PROVIDERS: ATTEND Nurse Practitioner | DX: Z12.31 Encounter for screening mammogram for malignant neoplasm of breast (principal); N64.89 Other specified disorders of breast ==